=== PATIENT | female | born 1945 | race Caucasian/White ===

== ENCOUNTER 2016-03-30 11:24 | Observation (INO) | payer OTHER, MEDICARE ==
[2016-03-30] MEDS ORDERED: BUPIVACAINE 0.25% 30 ML SDV ONE (11:48)
[2016-03-30] MEDS ORDERED: LR 1,000 ML IV ONE (11:51)
[2016-03-30] MEDS ORDERED: LIDOCAINE 1% 5 ML SDV ID PRN (11:51)
[2016-03-30] MEDS ORDERED: LIDOCAINE 1% 5 ML SDV ONE (12:01)
[2016-03-30] MEDS ORDERED: ceFAZolin 2 GM/DEXTROSE 100 ML IV ONE (12:30)
--- NOTE | 2016-03-30 12:59 | CPEKG ---
Heart Rate: 61 RR Interval: 984 P-R Interval: 132 QRSD Interval: 76 QT Interval: 440 QTC Interval: 444 P Jolon: 37 QRS Jolon: 21 T Wave Jolon: 42 EKG Severity - NORMAL ECG - EKG Impression: SINUS RHYTHM Electronically Signed By: Gilson Reid 31-Mar-2016 13:04:44
[2016-03-30] MEDS ORDERED: MIDAZOLAM 2 MG/2 ML VIAL ONE (13:03)
[2016-03-30] MEDS ORDERED: DEXAMETHASONE 4 MG/ML VIAL ONE (13:15)
[2016-03-30] MEDS ORDERED: ONDANSETRON 4 MG/2 ML VIAL ONE (13:15)
[2016-03-30] MEDS ORDERED: LIDOCAINE 2% 100 MG/5 ML SYR IVP ONE (13:15)
[2016-03-30] MEDS ORDERED: fentaNYL 100 MCG/2 ML INJ ONE ×2 (13:15→15:20)
[2016-03-30] MEDS ORDERED: PROPOFOL 200 MG/20 ML VIAL ONE (13:15)
--- NOTE | 2016-03-30 13:19 | NM ---
Nuclear Medicine Lymphoscintigraphy History: Left breast cancer staging. Comparison: Diagnostic mammogram and stereotactic biopsy February 06, 2016. Technique: Informed consent was obtained. The breast was sterilely prepped and draped. An intraderm al aliquot of 308 uCi Lymphoseek and a parenchymal aliquot of 226 uCi Lymphoseek were injected. The injections were placed at the 12:00 position after topical numbing spray was utilized. The patient wa s imaged serially. Findings: No angel uptake is identified. Impression: Seminal lymph node injection as above with no visible sentinel node.
[2016-03-30] MEDS ORDERED: SKIN ADHESIVE (DERMABOND) 1 EACH TP ONE (14:44)
[2016-03-30] MEDS ORDERED: HYDROmorphONE/DILAUDID 1 MG/ML SYR ONE (15:24)
--- NOTE | 2016-03-30 15:39 | POSTOPPROG ---
Post Op Note Date of Operation: 03/30/16 Surgeon: Varun Phelps (, FACS) Merchandise Deliverer: Tk Sharif CST/SA Anesthesiologist: Terry Tellez MD Anesthesia: LMA Pre-op Diagnosis: recurrent left breast cancer Post-op Diagnosis: same Procedure: left total mastectomy/superficial axillary node dissection/sentinel mapping Findings: 2/2 nodes negative by FS Inf/Abcess present in the surg proc area at time of surgery?: No EBL: Minimal Drains: Bo Grier
[2016-03-30] MEDS ORDERED: ONDANSETRON 4 MG/2 ML VIAL IVP PRN (15:41)
[2016-03-30] MEDS ORDERED: LR 1,000 ML IV SCH (16:00)
[2016-03-30] MEDS ORDERED: PROMETHAZINE HCL 25 MG/ML INJ ONE (16:03)
[2016-03-30 17:32] VITALS: RESP 16
[2016-03-30] MEDS ORDERED: HYDROmorphONE/DILAUDID 1 MG/ML SYR IVP PRN (22:00)
[2016-03-31] MEDS: HYDROCODONE/APAP 5/325 TAB PO PRN ×3 (00:59→09:22)
--- NOTE | 2016-03-31 03:33 | GOP ---
[f rep st] OPERATIVE REPORT DATE OF OPERATION: 03/30/2016 SURGEON: Varun Phelps MD, FACS WELLNESS EDUCATOR: Braden Sharif J2EE ANDROID DEVELOPER, [facility] ANESTHESIA: General by laryngeal mask. ANESTHESIOLOGIST: Terry Tellez MD PREOPERATIVE DIAGNOSIS: Recurrent left breast carcinoma status post partial mastectomy and whole breast radiation. POSTOPERATIVE DIAGNOSIS: Recurrent left breast carcinoma status post partial mastectomy and whole breast radiation. PROCEDURE PERFORMED: Left total mastectomy with sentinel lymph node mapping and superficial axillary lymph node dissection. FINDINGS: Two sentinel lymph nodes submitted for frozen section as well as permanent section showing no evidence of metastatic malignancy. Left mastectomy specimens submitted for permanent section, marking the specimen with sutures to designate the superior margin (short) and the lateral margin (long). ESTIMATED BLOOD LOSS: 25 mL. DESCRIPTION OF PROCEDURE: After informed consent was obtained, the patient was brought to the operating room and placed under general anesthesia. The left breast was prepped and draped in usual fashion. She had undergone preoperative sentinel lymph node injection and images were reviewed preoperatively. The sentinel nodes were not visualized by lymphoscintigraphy either in the mediastinum or in the axilla. Before proceeding, a time-out identification of the patient was performed. The safe and timely completion of the operation required the help of a qualified 1st assistant engineer and Mr. Tk Sharif was requested to attend. Mastectomy was performed through an elliptical incision encompassing the nipple- areolar complex. Flaps were elevated cephalad to the infraclavicular fossa, medially to the sternal border, and inferiorly to the inframammary fold. Lateral the dissection was carried to the border of the latisimus. The breast tissue was then from the pectoralis medially and extending laterally to the pectoralis border. Hemostasis was secured with cautery and hemoclips. Laterally, the dissection was carried out down to the latissimus and then cephalad to the axilla. Patient was noted to have significant scar tissue throughout the procedure from her prior whole breast radiation and this extended to the tail of the breast. Once the axillary fascia had been incised, we were able to use the gamma detector to identify the sentinel nodes which were in the mid level 1 chain. The breast was amputated at the axillary tail. Hemostasis was secured with hemoclips and cautery. Dissection further into the axilla revealed the location of the 2 nodes. These were quite deep in the axilla, but superficial to the long thoracic nerve of Vega and immediately overlying the serrated muscle. Two nodes were retrieved. These were submitted for frozen section and were submitted for permanent section subsequently after the frozen section showed no evidence of malignancy. Hemostasis appeared secure. A single 10 mm flat Bo-Grier drain was brought through a separate stab wound, secured to the skin with 3-0 nylon suture. Subcutaneous tissues were closed with 3-0 Monocryl suture. A redundant portion of skin was resected laterally because of a significant dog ear. The remainder of the incision was closed with akash. The core needle biopsy site which was high in the left chest in the infraclavicular fossa was excised and submitted for permanent section. This was closed with a single interrupted 4-0 Monocryl suture in subcuticular fashion with Dermabond applied to it. Patient was extubated and brought to the recovery room in satisfactory condition. Needle, sponge, instrument count were correct. COMPLICATIONS: None. /[id number]/MODL MTDD
[2016-03-31] MEDS ORDERED: ONDANSETRON DISINTEGRATING 4 MG TAB PO PRN (07:46)
--- NOTE | 2016-03-31 08:17 | PDDCSUM ---
Discharge Summary Discharge Summary: #[id number] Discharge Summary dictated S MD Lenin, FACS
--- NOTE | 2016-03-31 08:38 | GDS ---
[f rep st] DISCHARGE SUMMARY DISCHARGE DIAGNOSES: 1. Recurrent left breast carcinoma. 2. Postoperative nausea and vomiting. PROCEDURE PERFORMED: On 03/30/2016, left total mastectomy with sentinel lymph node mapping and super ficial axillary lymph node dissection. HOSPITAL COURSE: For details of admission history and physical, please see dictated summary. Briefl y, the patient is a 70-year-old female, who is approximately 5 years status post left partial mastect marii for ductal carcinoma in situ with microinvasion. The patient had a sentinel lymph node mapping a nd subsequent postoperative radiation therapy to the left breast. She was found to have new microcal cifications in the left breast on mammography. Needle biopsy showed invasive ductal carcinoma. She was admitted for mastectomy on the . At the time of surgery she had 2 sentinel nodes identified and recovered that showed no evidence of malignancy. The mastectomy specimen was submitted for perma nent section. Following surgery, the patient had moderate nausea and vomited several times, possibly related to intravenous Dilaudid. She received Concord for pain subsequently and had no further nausea or emesis. She was discharged home after tolerating breakfast the day after surgery. Her surgical sites were uncomplicated. She was instructed on Bo-Grier drain care and will follow up in my of [place] in the next 2-3 days for dressing change and drain check. DISCHARGE MEDICATIONS: Concord 5/325 one to two q.4 hours p.r.n. pain, Zofran 10 mg p.o. q.4 hours p.r .n. nausea. The patient will resume aspirin, which she takes on a daily basis, 81 mg p.o. daily. CONDITION AT TIME OF DISCHARGE: Satisfactory. /[id number]/MODL
[2016-03-31] MEDS ORDERED: ASPIRIN 81 MG CHEWABLE TAB PO SCH (09:00)
[2016-03-31] MEDS ORDERED: ASPIRIN 81 MG PO SCH (09:00)
[2016-03-31] MEDS ORDERED: ENOXAPARIN 40 MG/0.4 ML SYR SC SCH (09:00)
[2016-03-31 10:11] VITALS: BP 129/66; PULSE 75; TEMP 98.8; O2SAT 96
== END 2016-03-31 09:45 | disposition home or self-care (01) ==
LOC: FPAT 11:24 → F3E 15:30 → FOB 17:49
PROVIDERS: ADMIT Surgery; ATTEND Surgery
PROC: 07B60ZX Excision of Left Axillary Lymphatic, Open Approach, Diagnostic (ICD-10-PCS; principal; 2016-03-30 13:00)
PROC: 0HTU0ZZ Resection of Left Breast, Open Approach (ICD-10-PCS; principal; 2016-03-30 13:00)
DX: C50.412 Malignant neoplasm of upper-outer quadrant of left female breast (principal); M81.0 Age-related osteoporosis without current pathological fracture
CPT/HCPCS: 19307; 78195; 93005; A9520; J0690; J1100; J1170; J1650; J2001; J2250; J2405; J2550; J2704; J3010

== ENCOUNTER 2016-04-18 18:27 | Inpatient (IN) | payer OTHER, MEDICARE ==
--- NOTE | 2016-04-18 18:57 | EDPHY ---
H & P Stated Complaint: recent masectomy w/ infection 04/10 Time Seen by Provider: 04/18/16 18:42 HPI/ROS: CHIEF COMPLAINT: Redness and possible infection of mastectomy site HISTORY OF PRESENT ILLNESS: 70-year-old female underwent a mastectomy for recurrent left breast carcinoma on March 31. Patient reports she developed a significant hematoma which became infected following her surgery and had a drain placed on April 09. Drain was removed yesterday. At that time the patient had some erythema around the incision site however, she presents today reporting that the redness has significantly increased. She walked for approximately 10 minutes on the treadmill this morning and then afterwards felt very fatigued. Temperature at that time was 100.6. She lay down and had a repeat temperature obtained later in the afternoon which was 100.9. Reports just feeling poorly. No chest pain or shortness of breath. No palpitations, no vomiting or diarrhea. No urinary complaints. No headache or lightheadedness. REVIEW OF SYSTEMS: Aside from elements discussed in the HPI, a comprehensive 10-point review of systems was reviewed and is negative. PAST MEDICAL HISTORY: Recurrent carcinoma the left breast. SOCIAL HISTORY: Patient is here with her . VITAL SIGNS Reviewed by me. GENERAL: Well-developed, well-nourished, feels poorly. HEENT: Atraumatic. Eyes: No icterus, no injection. Mouth: moist mucous membranes. No erythema or lesions. Neck: supple with no adenopathy. LUNGS: Clear to auscultation bilaterally, no wheezes, rhonchi or rales. CARDIAC: Regular rate and rhythm, no rubs, murmurs or gallops. CHEST: Healing incision across the left anterior chest wall. Erythema extending 10 cm cephalad and 10 cm below the incision. No fluctuance. Minimal drainage on the bandage at the site of the drain removal. ABDOMEN: Soft, nontender, nondistended, bowel sounds normal. BACK: No CVA tenderness. EXTREMITIES: No trauma. No edema. Range of motion is normal throughout. NEURO: Alert and oriented, grossly nonfocal. SKIN: Warm and dry, no rash. PSYCHIATRIC: Normal mentation, no agitation. - Personal History Current Tetanus/Diphtheria Vaccine: Unsure Current Tetanus Diphtheria and Acellular Pertussis (TDAP): Unsure - Medical/Surgical History Hx Asthma: No Hx Chronic Respiratory Disease: No Hx Diabetes: No Hx Cardiac Disease: No Hx Renal Disease: No Hx Cirrhosis: No Hx Alcoholism: No Hx HIV/AIDS: No Hx Splenectomy or Spleen Trauma: No Other PMH: Breast CA osteoporosis - Social History Smoking Status: Never smoked Constitutional: Initial Vital Signs Temperature (C) 37.3 C 04/18/16 18:29 Heart Rate 93 04/18/16 18:29 Respiratory Rate 16 04/18/16 18:29 Blood Pressure 102/63 04/18/16 18:29 O2 Sat (%) 96 04/18/16 18:29 O2 Delivery Mode Room Air Allergies/Adverse Reactions: chlorpheniramine [Chlorpheniramine] Allergy (Intermediate, Verified 03/30/10 12: 29) Rash erythromycin base [Erythromycin Base] Allergy (Intermediate, Verified 03/30/10 12:31) irregular heartbeat meperidine [Meperidine] Allergy (Intermediate, Verified 03/30/10 12:31) Rash morphine [Morphine] Allergy (Intermediate, Verified 03/30/10 12:37) extreme nausea adhesive tape Allergy (Verified 03/14/16 11:47) meperidine HCl [From Demerol] Allergy (Verified 03/14/16 11:47) ether Allergy (Intermediate, Uncoded 03/30/10 12:36) unknown heart reaction as a child Home Medications: Medication Instructions Recorded Acetaminophen [Tylenol ES 500 mg 500 mg PO Q6 PRN 04/18/16 (*)] Ibuprofen [Motrin (*)] 200 mg PO Q4H PRN 04/18/16 Medical Decision Making ED Course/Re-evaluation: IV was established. Patient received 1 g of vancomycin. Blood cultures were sent. Screening for sepsis was undertaken. Severe Sepsis/Septic Shock Care Note The patient presents to the ED with cellulitis identified as an acute infection. The patient did not have evidence of end-organ dysfunction and met not criteria for severe sepsis. Patient received 1 g of vancomycin while in the emergency department. She was evaluated by Dr. Jesus. Please see Dr. Jesus note. Patient will be admitted to the hospital for ongoing care of her cellulitis and consideration of possible surgical intervention. Differential Diagnosis: Differential diagnoses for the patient's symptom complex was considered including but not limited to cellulitis, allergic reaction, deep space infection , infected hematoma, septicemia. Consult/Admit Bed Type: Dr. Jesus, med surg - Data Points Laboratory Results: Laboratory Results 04/18/16 19:00 04/18/16 19:00 04/18/16 19:00 WBC 12.47 H 10^3/uL (3.80-9.50) RBC 4.39 10^6/uL (4.18-5.33) Hgb 13.3 g/dL (12.6-16.3) Hct 41.1 % (38.0-47.0) MCV 93.6 fL (81.5-99.8) MCH 30.3 pg (27.9-34.1) MCHC 32.4 g/dL (32.4-36.7) RDW 13.8 % (11.5-15.2) Plt Count 337 10^3/uL (150-400) MPV 9.8 fL (8.7-11.7) Neut % (Auto) 83.4 H % (39.3-74.2) Lymph % (Auto) 7.9 L % (15.0-45.0) Alcorn % (Auto) 7.3 % (4.5-13.0) Eos % (Auto) 0.3 L % (0.6-7.6) Baso % (Auto) 0.5 % (0.3-1.7) Nucleat RBC Rel Count 0.0 % (0.0-0.2) Absolute Neuts (auto) 10.40 H 10^3/uL (1.70-6.50) Absolute Lymphs (auto) 0.99 L 10^3/uL (1.00-3.00) Absolute Monos (auto) 0.91 H 10^3/uL (0.30-0.80) Absolute Eos (auto) 0.04 10^3/uL (0.03-0.40) Absolute Basos (auto) 0.06 10^3/uL (0.02-0.10) Absolute Nucleated RBC 0.00 10^3/uL (0-0.01) Immature Gran % 0.6 % (0.0-1.1) Immature Gran # 0.07 10^3/uL (0.00-0.10) PT 13.0 SEC (12.0-15.0) INR 0.99 (0.83-1.16) APTT 22.1 L SEC (23.0-38.0) VBG Lactic Acid 1.4 mmol/L (0.7-2.1) Sodium 138 mEq/L (134-144) Potassium 4.2 mEq/L (3.5-5.2) Chloride 102 mEq/L (97-110) Carbon Dioxide 23 mEq/l (22-31) Anion Gap 13 mEq/L (8-16) BUN 16 mg/dL (7-23) Creatinine 0.7 mg/dL (0.6-1.0) Estimated GFR > 60 Glucose 94 mg/dL (70-100) Calcium 9.7 mg/dL (8.5-10.4) Total Bilirubin 0.9 mg/dL (0.1-1.4) Medications Given: Discontinued Medications Vancomycin/Sodium Chloride (Vancomycin 1 Gm (Premix)) 250 mls @ 250 mls/hr IV EDNOW ONE PRN Reason: Protocol Stop: 04/18/16 20:26 Last Admin: 04/18/16 19:45 Dose: 250 mls Departure - Departure Disposition: [facility] Inpatient Acute Clinical Impression: Cellulitis of chest wall Condition: Fair
[2016-04-18 19:15] LABS: % IMMATURE GRANULYOCYTES 0.6 % (0.0-1.1); ABSOLUTE IMMATURE GRANULOCYTES 0.07 10^3/uL (0.00-0.10); ADD DIFF? NO; ADD MORPH? NO; ADD SCAN? NO; ATYPICAL LYMPHOCYTE FLAG 0 (0-99); FRAGMENT RBC FLAG 0 (0-99); HEMATOCRIT 41.1 % (38.0-47.0); HEMOGLOBIN 13.3 g/dL (12.6-16.3); LEFT SHIFT FLG 0 (0-99); LIPEMIA HEMOLYSIS FLAG 80 (0-99); MEAN CELL HEMOGLOBIN 30.3 pg (27.9-34.1); MEAN CELL HEMOGLOBIN CONCENTR. 32.4 g/dL (32.4-36.7); MEAN CELL VOLUME 93.6 fL (81.5-99.8); MEAN PLATELET VOLUME 9.8 fL (8.7-11.7); PLATELET CLUMPS FLAG 20 (0-99); PLATELET COUNT 337 10^3/uL (150-400); RED BLOOD CELL COUNT 4.39 10^6/uL (4.18-5.33); RED CELL DISTRIBUTION WIDTH 13.8 % (11.5-15.2)
[2016-04-18 19:26] LABS: INR 0.99 (0.83-1.16)
[2016-04-18 19:27] LABS: APTT 22.1 SEC (23.0-38.0)
[2016-04-18] MEDS ORDERED: VANCOMYCIN HCL/NORMAL SALINE 250 ML IV ONE (19:27)
[2016-04-18 19:42] LABS: ANION GAP 13 mEq/L (8-16); BILIRUBIN,TOTAL 0.9 mg/dL (0.1-1.4); CALCIUM 9.7 mg/dL (8.5-10.4); CARBON DIOXIDE 23 mEq/l (22-31); CHLORIDE 102 mEq/L (97-110); CREATININE 0.7 mg/dL (0.6-1.0); GLOMERULAR FILTRATION RATE > 60; GLUCOSE 94 mg/dL (70-100); POTASSIUM 4.2 mEq/L (3.5-5.2); SODIUM 138 mEq/L (134-144)
[2016-04-18] MEDS ORDERED: OXYCODONE/APAP 5/325 TAB PO PRN (20:10)
[2016-04-18] MEDS ORDERED: DOCUSATE SODIUM 100 MG CAP PO ONE (20:10)
[2016-04-18] MEDS ORDERED: ONDANSETRON 4 MG/2 ML VIAL IVP PRN (20:16)
[2016-04-18] MEDS ORDERED: VANCOMYCIN 1.5 GM in D5W 250 ML IV SCH (20:30)
--- NOTE | 2016-04-18 20:32 | GHP ---
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 She had mastecto my with Dr. Phelps on March 31 which was complicated by hematoma, requiring evacuation 9 days later . Her drain was removed yesterday. Today she noted erythema around the incision which has gotten sign ificantly more severe and grown in area. She subsequently noted low-grade fevers to a maximum of 100. 9 and was advised to come into the emergency department where she was noted to have a white blood lamberto l count of 12 with a left shift to 83% neutrophils. PAST MEDICAL HISTORY: Two primary breast cancers of the left breast as per history of present illnes s. Osteoporosis. PAST SURGICAL HISTORY: She has had a section. She has had 2 laparoscopies for ablation of endometriosis. She has had the lumpectomy, mastectomy and hematoma evacuations as per history of pres ent illness. MEDICATIONS: None. ALLERGIES: Erythromycin, Demerol, morphine, chlorpheniramine. SOCIAL HISTORY: She is a nonsmoker. FAMILY HISTORY: There is no history of breast cancer. REVIEW OF SYSTEMS: She denied chest pain, shortness of breath, nausea or vomiting. She complained o f low-grade fevers, pain and redness of her left chest wall. PHYSICAL EXAMINATION: VITAL SIGNS: Her temperature is 37.3, heart rate 93, blood pressure 102/63, r espiratory rate 16. She is saturating 96% on room air. GENERAL: She is alert in acute distress, no ntoxic appearing, nonjaundiced. LUNGS: Clear to auscultation bilaterally. HEART: Regular rate and rhythm. ABDOMEN: Soft, and flat. SKIN: She has extensive erythema edema of the left chest wall salazar rrounding the mastectomy incision and extending to the left posterior axillary line. LABORATORY DATA: White count is 12 with a left shift to 83% neutrophils, hematocrit 41, platelets 33 7. INR is 1. Lactate is 1.4, creatinine 0.7. ASSESSMENT: Cellulitis of the left chest wall. PLAN: She will be admitted for IV antibiotics, IV fluids and observation with serial exams and lab w ork. /[id number]/MODL
[2016-04-18] MEDS: LR 1,000 ML IV SCH (21:30)
[2016-04-18] MEDS: ACETAMINOPHEN 325 MG TAB PO PRN (22:15)
[2016-04-18 23:58] LABS: COLOR YELLOW; LEUKOCYTE ESTERASE,URINE TRACE (NEGATIVE); NITRITE,URINE NEGATIVE (NEGATIVE)
[2016-04-19] LABS: MUCUS TRACE /lpf (NONE-1+)
[2016-04-19] MEDS: ACETAMINOPHEN 325 MG TAB PO PRN ×3 (04:55→19:36)
[2016-04-19 05:32] LABS: % IMMATURE GRANULYOCYTES 0.8 % (0.0-1.1); ADD DIFF? NO; ADD MORPH? NO; ADD SCAN? NO; ATYPICAL LYMPHOCYTE FLAG 10 (0-99); FRAGMENT RBC FLAG 0 (0-99); HEMATOCRIT 32.6 % (38.0-47.0); HEMOGLOBIN 10.6 g/dL (12.6-16.3); LEFT SHIFT FLG 0 (0-99); LIPEMIA HEMOLYSIS FLAG 80 (0-99); MEAN CELL HEMOGLOBIN 30.3 pg (27.9-34.1); MEAN CELL HEMOGLOBIN CONCENTR. 32.5 g/dL (32.4-36.7); MEAN CELL VOLUME 93.1 fL (81.5-99.8); MEAN PLATELET VOLUME 9.7 fL (8.7-11.7); PLATELET CLUMPS FLAG 0 (0-99); PLATELET COUNT 272 10^3/uL (150-400)
[2016-04-19] MEDS ORDERED: VANCOMYCIN 750 MG in D5W 150 ML IV SCH (08:30)
--- NOTE | 2016-04-19 17:42 | SOAPPROG ---
SOAP Progress Note Assessment/Plan: Assessment: post mastectomy cellulitis/clinically suspicious for streptococcal cellulitis given the rapid onset Plan: continue Vanco/ID consult repeat UA +/- culture 04/19/16 17:36 Subjective: denies pain/no urinary symptoms Objective: Vital Signs Temp Pulse Resp BP Pulse Ox 37.3 C 75 18 136/69 H 95 04/19/16 16:00 04/19/16 16:00 04/19/16 16:00 04/19/16 16:00 04/19/16 16:00 Laboratory Results 04/19/16 04:55 04/18/16 04/19/16 04/20/16 05:59 05:59 05:59 Intake Total 1285 Balance 1285 PT 13.0 SEC (12.0-15.0) 04/18/16 19:00 INR 0.99 (0.83-1.16) 04/18/16 19:00 Physical Exam - Physical Exam General Appearance: no apparent distress Cardiac/Chest: other (erythema left anterior chest wall, no fluctuence/smaller than original presentation by 10-20% based on the outline drawn on her chest) ICD10 Worksheet Patient Problems: Problems Problem Status Diagnosed Cellulitis of chest wall Acute
[2016-04-19] MEDS: LR 1,000 ML IV SCH (19:38)
[2016-04-19 21:11] LABS: COLOR YELLOW; LEUKOCYTE ESTERASE,URINE NEGATIVE (NEGATIVE); NITRITE,URINE NEGATIVE (NEGATIVE)
[2016-04-19] MEDS: VANCOMYCIN 750 MG in D5W 150 ML IV SCH (21:42)
[2016-04-20] MEDS: ACETAMINOPHEN 325 MG TAB PO PRN ×4 (01:49→22:04)
[2016-04-20 05:06] LABS: % IMMATURE GRANULYOCYTES 0.4 % (0.0-1.1); ABSOLUTE IMMATURE GRANULOCYTES 0.04 10^3/uL (0.00-0.10); ADD DIFF? NO; ADD MORPH? NO; ADD SCAN? NO; ATYPICAL LYMPHOCYTE FLAG 10 (0-99); FRAGMENT RBC FLAG 0 (0-99); HEMATOCRIT 33.7 % (38.0-47.0); HEMOGLOBIN 11.2 g/dL (12.6-16.3); LEFT SHIFT FLG 0 (0-99); LIPEMIA HEMOLYSIS FLAG 80 (0-99); MEAN CELL HEMOGLOBIN 30.4 pg (27.9-34.1); MEAN CELL HEMOGLOBIN CONCENTR. 33.2 g/dL (32.4-36.7); MEAN CELL VOLUME 91.3 fL (81.5-99.8); MEAN PLATELET VOLUME 9.7 fL (8.7-11.7); PLATELET CLUMPS FLAG 0 (0-99); PLATELET COUNT 264 10^3/uL (150-400); RED BLOOD CELL COUNT 3.69 10^6/uL (4.18-5.33); RED CELL DISTRIBUTION WIDTH 13.6 % (11.5-15.2)
--- NOTE | 2016-04-20 07:37 | SOAPPROG ---
SOAP Progress Note Assessment/Plan: Assessment: post mastectomy cellulitis/clinically suspicious for streptococcal cellulitis given the rapid onset continues to improve Day #3 Vanco Plan: continue Vanco/ID consult 04/19/16 17:36 04/20/16 07:35 Subjective: still feels feverish when her Tylenol wears off Objective: Vital Signs Temp Pulse Resp BP Pulse Ox 37.4 C 77 15 151/72 H 91 L 04/20/16 00:00 04/20/16 00:00 04/20/16 00:00 04/20/16 00:00 04/20/16 00:00 Laboratory Results 04/20/16 04:36 04/19/16 04/20/16 04/21/16 05:59 05:59 05:59 Intake Total 2513 Output Total 2 Balance 2511 PT 13.0 SEC (12.0-15.0) 04/18/16 19:00 INR 0.99 (0.83-1.16) 04/18/16 19:00 Physical Exam - Physical Exam General Appearance: alert, no apparent distress Cardiac/Chest: other (chest wall cellulitis resolving/no fluctuance/moderate swelling) ICD10 Worksheet Patient Problems: Problems Problem Status Diagnosed Cellulitis of chest wall Acute
[2016-04-20] MEDS: LR 1,000 ML IV SCH ×2 (07:44→21:00)
[2016-04-20] MEDS: VANCOMYCIN 750 MG in D5W 150 ML IV SCH (10:19)
--- NOTE | 2016-04-20 11:33 | GCON ---
[f rep st] CONSULTATION INFECTIOUS DISEASES CONSULTATION DATE OF CONSULTATION: 04/20/2016 REASON FOR CONSULTATION: Left chest wall cellulitis following mastectomy. HISTORY OF PRESENT ILLNESS: A 70-year-old woman with a past medical history of remote lumpectomy who underwent complete left mastectomy on March 30, 2016. Her course was complicated by hematoma which was subsequently evacuated surgically April 10. She had her akash and drain removed on April 17 and subsequently developed marked increased redness of the left chest wall and a higher temperature to 101. She presented to the emergency room for evaluation and was found to have leukocytosis with a left shift. The patient was admitted for IV antibiotics and started on IV vancomycin 750 mg IV q.12. Since admission, patient has had recession of the redness. She reports minimal pain associated with the skin abnormalities. Her last elevated temperature was 04/19/2016 at 38.2. She has had mild improvement in leukocytosis, initially 12.4, today 10.6. Blood cultures from admission have remained negative. Patient denies night sweats, malaise. Her is present throughout the history and exam. PAST MEDICAL HISTORY: 1. breast cancer prior Radiation and lumpectomy, no chemo. 2. Endometriosis. 3. Osteoporosis. PAST SURGICAL HISTORY: 1. x1. 2. Exploratory laparotomy multiple times related to endometriosis and ovary on her cyst. 3. Mastectomy as per HPI and more remote lumpectomy SOCIAL HISTORY: She is a nonsmoker. She uses rare alcohol. She is . She has 1 child. 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 FAMILY HISTORY: Strongly positive for coronary artery disease. Her dad at 53, her brother at age 39, and her other brothers has had a CABG. She also has a more distant family history of diabetes. No family history of breast cancer. REVIEW OF SYSTEMS: A complete 10-point review of systems was performed and was negative, except as mentioned in the HPI. PHYSICAL EXAM: VITAL SIGNS: Blood pressure 137/67, heart rate 91, respiratory rate 18, temperature 37.2. GENERAL: This is a pleasant, nontoxic-appearing woman, sitting in bed in no acute distress. HEENT: Pupils are reactive bilaterally. No conjunctival hemorrhages. Oropharynx: Fair dentition, moist mucous membranes. NECK: Supple. No lymphadenopathy. CARDIOVASCULAR: Regular rate and rhythm. No murmurs. CHEST: Clear to auscultation bilaterally. ABDOMEN: Soft, nontender. Bowel sounds are present. EXTREMITIES : No clubbing, cyanosis, or edema. SKIN: Patient had obvious cellulitis of her left chest wall associated with her mastectomy incision. area of erythema was approximately 7 x 15 cm in diameter without fluctuance with obvious recession from purple lines drawn on admission. No associated lymphadenopathy. Mild tenderness laterally, but otherwise was fairly nontender. No purulence from incision site or drainage. NEUROLOGICAL: She was alert and oriented x4. Moving all 4 extremities equally. LABORATORY: White count 10.6, hematocrit 33, platelets of 267, 82% neutrophils. INR 0.9. Creatinine 0.7. Blood cultures from 04/18/2016 are no growth to date. Imaging: None. ASSESSMENT AND PLAN: A 70-year-old female who underwent a left mastectomy on , course complicated by hematoma requiring surgical evacuation, who developed sudden redness of her left chest wall following drain removal, consistent with cellulitis. Patient already has signs of improvement with recession of erythema from prior lines and decreasing WBC. Rapid onset, particularly bright erythema, and lack of purulence, is suggestive of streptococcal mediated disease as suggested by the Surgical Services, but cannot completely exclude Staphylococcus. The patient has some mild risk for methicillin-resistant Staphylococcus aureus, but overall risk is low. Would recommend narrowing coverage to Streptococcus and methicillin-susceptible Staphylococcus aureus and discontinuing coverage for methicillin-resistant Staphylococcus aureus. 1. Discontinue vancomycin and monitoring parameters. 2. Start cefazolin 1 g IV q.8h. with hopes to step-down to oral therapy in the next day or 2. 3. Education was provided regarding antibiotic changes, changes in coverage, tissue penetration, and parameters of monitoring. 4. re-marked erythema with a dotted line to help for continued monitoring over the weekend. Thank you for this consultation. /[id number]/MODL MTDD
[2016-04-21 05:26] LABS: % IMMATURE GRANULYOCYTES 0.2 % (0.0-1.1); ABSOLUTE IMMATURE GRANULOCYTES 0.02 10^3/uL (0.00-0.10); ADD DIFF? NO; ADD MORPH? NO; ADD SCAN? NO; ATYPICAL LYMPHOCYTE FLAG 10 (0-99); FRAGMENT RBC FLAG 0 (0-99); HEMATOCRIT 34.7 % (38.0-47.0); HEMOGLOBIN 11.5 g/dL (12.6-16.3); LEFT SHIFT FLG 0 (0-99); LIPEMIA HEMOLYSIS FLAG 80 (0-99); MEAN CELL HEMOGLOBIN 30.1 pg (27.9-34.1); MEAN CELL HEMOGLOBIN CONCENTR. 33.1 g/dL (32.4-36.7); MEAN CELL VOLUME 90.8 fL (81.5-99.8); MEAN PLATELET VOLUME 9.9 fL (8.7-11.7); PLATELET CLUMPS FLAG 0 (0-99); PLATELET COUNT 283 10^3/uL (150-400); RED BLOOD CELL COUNT 3.82 10^6/uL (4.18-5.33); RED CELL DISTRIBUTION WIDTH 13.5 % (11.5-15.2)
[2016-04-21] MEDS: LR 1,000 ML IV SCH ×2 (06:24→17:55)
[2016-04-21] MEDS: ACETAMINOPHEN 325 MG TAB PO PRN ×3 (07:24→22:44)
--- NOTE | 2016-04-21 16:48 | PCMIDPN ---
Assessment/Plan: Assessment/Plan: 1. Left chest wall cellulitis with abscess: s/p I & D (bedside) - Recent mastectomy (03/30/16) with subsequent hematoma (drained). - events of today noted. Cultures sent off. Appreciate Dr. Phelps -AWait cultures to better direct therapy. - Given new abscess findings and no improvement in degree of erythema will change back to Vanco until cx results back. I reviewed this plan with patient and -Reviewed several possible explanations for above with patient and including common pathogens related to such presentation, possible reasons for plateaued affect, that this could still be Strep presentation despite not much improvement today. -wbc overall improved. -Long discussion with patient and . -blood cx ngtd - Meds Ancef 1g q8- Subjective: TEmps better. Today's events noted with small incision made and pus expressed out by Dr. Phelps. Some decrease in pain after that procedure. Redness is the same as yesterday. Denies sob, abd pain or diarrhea. Objective: Vital Signs Temp Pulse Resp BP Pulse Ox 36.9 C 78 17 163/89 H 94 04/21/16 15:54 04/21/16 15:54 04/21/16 15:54 04/21/16 15:54 04/21/16 15:54 Laboratory Results 04/21/16 04:43 04/20/16 04/21/16 04/22/16 05:59 05:59 05:59 Intake Total 2513 3320 Output Total 2 Balance 2511 3320 - Physical Exam General Appearance: alert, no apparent distress Respiratory: lungs clear Cardiac/Chest: regular rate, rhythm Extremities: No swelling Abdomen: normal bowel sounds, non-tender, soft, No distended Skin: erythema, induration, other (left breast: erythema same as yesterday's demarcation. small incision site noted with wick in place. induratoin appreciated. ) ICD10 Worksheet Patient Problems: Problems Problem Status Diagnosed Cellulitis of chest wall Acute
[2016-04-21] MEDS: VANCOMYCIN 750 MG in D5W 150 ML IV SCH (17:55)
[2016-04-22] MEDS: LR 1,000 ML IV SCH (02:20)
[2016-04-22] MEDS: VANCOMYCIN 750 MG in D5W 150 ML IV SCH (04:38)
[2016-04-22 04:58] LABS: % IMMATURE GRANULYOCYTES 0.4 % (0.0-1.1); ABSOLUTE IMMATURE GRANULOCYTES 0.02 10^3/uL (0.00-0.10); ADD DIFF? NO; ADD MORPH? NO; ADD SCAN? NO; ATYPICAL LYMPHOCYTE FLAG 30 (0-99); FRAGMENT RBC FLAG 0 (0-99); HEMATOCRIT 34.6 % (38.0-47.0); HEMOGLOBIN 11.5 g/dL (12.6-16.3); LEFT SHIFT FLG 0 (0-99); LIPEMIA HEMOLYSIS FLAG 80 (0-99); MEAN CELL HEMOGLOBIN CONCENTR. 33.2 g/dL (32.4-36.7); MEAN CELL VOLUME 90.3 fL (81.5-99.8); MEAN PLATELET VOLUME 9.6 fL (8.7-11.7); PLATELET CLUMPS FLAG 10 (0-99); PLATELET COUNT 290 10^3/uL (150-400); RED BLOOD CELL COUNT 3.83 10^6/uL (4.18-5.33); RED CELL DISTRIBUTION WIDTH 13.3 % (11.5-15.2)
[2016-04-22 05:24] LABS: ALANINE AMINOTRANSFERASE 24 IU/L (9-52); ALBUMIN 3.4 g/dL (3.5-5.0); ALKALINE PHOSPHATASE 71 IU/L (38-126); ANION GAP 11 mEq/L (8-16); ASPARTATE AMINOTRANSFERASE 21 IU/L (14-46); BILIRUBIN,TOTAL 0.4 mg/dL (0.1-1.4); CALCIUM 9.2 mg/dL (8.5-10.4); CARBON DIOXIDE 26 mEq/l (22-31); CHLORIDE 108 mEq/L (97-110); CREATININE 0.5 mg/dL (0.6-1.0); GLOMERULAR FILTRATION RATE > 60; GLUCOSE 92 mg/dL (70-100); POTASSIUM 3.6 mEq/L (3.5-5.2); SODIUM 145 mEq/L (134-144); TOTAL PROTEIN 6.1 g/dL (6.3-8.2)
--- NOTE | 2016-04-22 07:02 | SOAPPROG ---
SOAP Progress Note Assessment/Plan: Assessment: post mastectomy cellulitis/clinically suspicious for streptococcal cellulitis given the rapid onset continues to improve Day #3 + 1 Vanco Plan: continue Vanco/ID consult appreciated check cultures 04/19/16 17:36 04/20/16 07:35 04/22/16 07:01 Subjective: resting comfortably Objective: Vital Signs Temp Pulse Resp BP Pulse Ox 36.6 C 79 20 171/91 H 96 04/22/16 00:00 04/22/16 00:00 04/22/16 00:00 04/22/16 00:00 04/22/16 00:00 Laboratory Results 04/22/16 04:28 04/22/16 04:28 04/21/16 04/22/16 04/23/16 05:59 05:59 05:59 Intake Total 3320 2580 Balance 3320 2580 PT 13.0 SEC (12.0-15.0) 04/18/16 19:00 INR 0.99 (0.83-1.16) 04/18/16 19:00 - Pending Discharge Pending Discharge Within 24 Hours: No Pending Discharge Within 48 Hours: No Physical Exam - Physical Exam General Appearance: mild distress Cardiac/Chest: other (left mastectomy site remains erythematous/more seropurulent drainage while change wound dressing) ICD10 Worksheet Patient Problems: Problems Problem Status Diagnosed Cellulitis of chest wall Acute
[2016-04-22] MEDS: LISINOPRIL 5 MG TAB PO SCH (08:59)
[2016-04-22] MEDS: ACETAMINOPHEN 325 MG TAB PO PRN ×2 (14:58→21:45)
--- NOTE | 2016-04-22 16:15 | PCMIDPN ---
Assessment/Plan: Assessment/Plan: 1. Left chest wall cellulitis with abscess: s/p I & D (bedside) - Recent mastectomy (03/30/16) with subsequent hematoma (drained). - events of today noted. Cultures sent off. Appreciate Dr. Phelps -Cultures preliminary show MSSA -blood cx ngtd -Continue with Ancef therapy for above. -Still needs iv atbx for now. Hopefully in next 1-2 days she may be able to switch over. - patient and updated on results and plan of care. Meds Ancef 2g q8- 04/22/16 16:14 Subjective: Afebrile. BP improved. still with pain but slighlty less. more pus expressed out today. erythema is less than yesterday but still moderate in presentation. denies abd pain or diarrhea. at bedside Objective: Vital Signs Temp Pulse Resp BP Pulse Ox 37.2 C 73 14 147/73 H 93 04/22/16 15:47 04/22/16 15:47 04/22/16 15:47 04/22/16 15:47 04/22/16 15:47 Microbiology 04/21/16 10:00 Gram Stain - Final Chest - Aspirate Laboratory Results 04/22/16 04:28 04/22/16 04:28 04/21/16 04/22/16 04/23/16 05:59 05:59 05:59 Intake Total 3320 2580 Balance 3320 2580 - Physical Exam General Appearance: alert, no apparent distress Respiratory: lungs clear Cardiac/Chest: regular rate, rhythm Extremities: No swelling Abdomen: normal bowel sounds, non-tender, soft, No distended Skin: erythema (left breast/chest wall: erythema conitnues to improve within areas of demarcation. wick noted within incision site. boggy area surrounding it. still indurated. erytehma/induration extends to lateral chest wall.) ICD10 Worksheet Patient Problems: Problems Problem Status Diagnosed Cellulitis of chest wall Acute
[2016-04-22] MEDS: ceFAZolin 2 GM in D5W 100 ML IV SCH (21:42)
[2016-04-22] MEDS ORDERED: ceFAZolin 2 GM/DEXTROSE 100 ML IV SCH (22:00)
[2016-04-23] MEDS: ceFAZolin 2 GM in D5W 100 ML IV SCH ×3 (05:53→21:24)
--- NOTE | 2016-04-23 08:07 | SOAPPROG ---
SOAP Progress Note Assessment/Plan: Assessment: post mastectomy cellulitis/subcutaneous abscess MSSA now back on Ancef clinically improved Plan: continue IV Ancef/ID consult appreciated discussed wound care with anticipating discharge in the next day or two 04/19/16 17:36 04/20/16 07:35 04/22/16 07:01 04/23/16 08:05 Subjective: resting comfortably Objective: Vital Signs Temp Pulse Resp BP Pulse Ox 37.1 C 73 18 170/85 H 93 04/23/16 07:45 04/23/16 07:45 04/23/16 07:45 04/23/16 07:45 04/23/16 07:45 Microbiology 04/21/16 10:00 Gram Stain - Final Chest - Aspirate Laboratory Results 04/22/16 04:28 04/22/16 04:28 04/22/16 04/23/16 04/24/16 05:59 05:59 05:59 Intake Total 2580 490 Balance 2580 490 PT 13.0 SEC (12.0-15.0) 04/18/16 19:00 INR 0.99 (0.83-1.16) 04/18/16 19:00 - Pending Discharge Pending Discharge Within 48 Hours: Yes Pending Discharge Date: 04/25/16 Pending Discharge Time: 11:00 Physical Exam - Physical Exam General Appearance: no apparent distress Cardiac/Chest: other (left mastectomy dressing changed/more serous/less skin erythema) ICD10 Worksheet Patient Problems: Problems Problem Status Diagnosed Cellulitis of chest wall Acute
[2016-04-23] MEDS: LISINOPRIL 5 MG TAB PO SCH (08:24)
--- NOTE | 2016-04-23 11:03 | PCMIDPN ---
Assessment/Plan: Assessment/Plan: 1. Left chest wall cellulitis with abscess: s/p I & D (bedside) - Recent mastectomy (03/30/16) with subsequent hematoma (drained). - events of today noted. Cultures sent off. Appreciate Dr. Phelps -Cultures preliminary show MSSA -blood cx ngtd -Continue with Ancef therapy for above. -Clinically improving since pus draining out. Hopefully in next 1-2 days she may be able to switch over. - patient updated on plan of care. -will start setting up OP f/u. will reassess in AM. Meds Ancef 2g q8- Subjective: Afebrile. Feeling better overall. More pus expressed out by myself last evening and by Dr. Phelps this Am. Copious in amount. wick in place. erythema and induration continue to improve. Denies sob, abd pain or diarrhea. Objective: Vital Signs Temp Pulse Resp BP Pulse Ox 37.1 C 73 18 170/85 H 93 04/23/16 07:45 04/23/16 07:45 04/23/16 07:45 04/23/16 08:24 04/23/16 07:45 Microbiology 04/21/16 10:00 Gram Stain - Final Chest - Aspirate Laboratory Results 04/22/16 04:28 04/22/16 04:28 04/22/16 04/23/16 04/24/16 05:59 05:59 05:59 Intake Total 2580 490 Balance 2580 490 - Physical Exam General Appearance: alert, no apparent distress Respiratory: lungs clear Cardiac/Chest: regular rate, rhythm Extremities: No swelling Abdomen: normal bowel sounds, non-tender, soft, No distended Skin: erythema (left breast/chest wall: continued improvment in degree of erythema. ARea has continued to shrink down within lines of demarcation. New lines placed today. Less bright red in general as well. Wick noted. ongonig purulence from that site today. warmth appreciated. tender spot more laterally on chest.) ICD10 Worksheet Patient Problems: Problems Problem Status Diagnosed Cellulitis of chest wall Acute
[2016-04-24] MEDS: ceFAZolin 2 GM in D5W 100 ML IV SCH ×3 (07:25→22:13)
[2016-04-24] MEDS: LISINOPRIL 10 MG TAB PO SCH (08:42)
[2016-04-24 23:16] VITALS: RESP 16
[2016-04-25] MEDS: ceFAZolin 2 GM in D5W 100 ML IV SCH (05:54)
[2016-04-25 07:45] VITALS: BP 173/95; PULSE 65; TEMP 98.3; O2SAT 93
--- NOTE | 2016-04-25 08:08 | PCMIDPN ---
Assessment/Plan: Assessment/Plan: 1. Left chest wall cellulitis with abscess: s/p I & D (bedside) - Recent mastectomy (03/30/16) with subsequent hematoma (drained). - events of today noted. Cultures sent off. Appreciate Dr. Phelps -Cultures preliminary show MSSA -blood cx ngtd -Continue with Ancef therapy for above. -Clinically improving since pus draining out. Hopefully switch to oral keflex 500mg q6 for 10 days tomorrow if continues to improve.. - patient and updated on plan of care. -f/u in Office on 05/02/16 at 10:30am. Meds Ancef 2g q8- Subjective: Afebrile. less purulent drainage from breast site. LEss erythema. Denies abd pain or diarrhea Objective: Vital Signs Temp Pulse Resp BP Pulse Ox 36.8 C 65 16 173/95 H 93 04/25/16 07:42 04/25/16 07:42 04/25/16 07:42 04/25/16 07:42 04/25/16 07:42 Laboratory Results 04/22/16 04:28 04/22/16 04:28 04/24/16 04/25/16 04/26/16 05:59 05:59 05:59 Intake Total 940 1520 Balance 940 1520 - Physical Exam General Appearance: alert, no apparent distress Extremities: No swelling Skin: erythema (left breast/chest wall: less overall erythema. unable to express out much pus today from site. wick in place. less tender) ICD10 Worksheet Patient Problems: Problems Problem Status Onset Cellulitis of chest wall Acute
--- NOTE | 2016-04-25 09:40 | SOAPPROG ---
Downtime Inpatient MD Late Entry SOAP Note: Due to computer downtime, I am recreating the following medical record entry as of this date and time based on the information specified below: Information on which this medical record entry is based: (Surgery Progress Note 04/24: medimine was down Glory was seen at 0630 yesterday. She was afebrile/her dressing was changed and she has mostly serous drainage from her mastectomy wound The medial upper breast flap developed superficial epidermolysis overnight The superficial layer was debrided with viable underlying dermis Silvasorb and Adaptic guaze was applied and the packing replaced/ I anticipate discharge 04/25 with po Abx and ongoing wound care Shivam Phelps MD, FACS
--- NOTE | 2016-04-25 09:55 | PDDCSUM ---
Discharge Summary Discharge Summary: #[id number] DAMION Phelps MD, FACS
[2016-04-25] MEDS: LISINOPRIL 10 MG TAB PO SCH (10:51)
--- NOTE | 2016-04-25 11:28 | GDS ---
[f rep st] DISCHARGE SUMMARY DISCHARGE DIAGNOSES: 1. Left postmastectomy cellulitis and subcutaneous abscess. 2. Hypertension, new onset. PROCEDURE PERFORMED: On 04/22/2016, drainage of chest wall abscess. HOSPITAL COURSE: For details of admission history and physical, please see dictated summary. Briefly, the patient is a 70-year-old female, who is status post left total mastectomy with sentinel lymph node biopsy for recurrent left breast carcinoma. 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 Her recurrence was a small invasive ductal carcinoma on core biopsy, and mastectomy specimen showed no residual carcinoma, and 2 sentinel nodes were negative. Unfortunately, the patient developed a hematoma approximately 6 days postoperatively, and required reoperation, and was admitted overnight at [facility] for this procedure where the hematoma was drained. She returned home and did well for an additional week when her drain was removed in the office on 04/16/2016. She was admitted on 04/18/2016 with fever and left chest wall cellulitis by Dr. Jesus. Blood cultures were obtained at time of admission. She was started on vancomycin and clinically improved. She had a leukocytosis with mild left shift on admission, but did not appear septic. Cellulitis improved approximately 30% to 40% overnight and then stopped improving, though she did not develop recurrent fevers. I assumed the patient's care at that point, and on the the patient was noted to have some fluctuance in the area of the cellulitis, and then aspiration revealed purulent fluid. This was drained through the center of the mastectomy incision, and a culture was submitted, which showed MSSA. She was switched to intravenous Ancef, was seen by Infectious Diseases, and continued to improve clinically. On the day prior to discharge, she developed some superficial epidermolysis along the medial superior flap. Unclear if this was related to her cellulitis or to her dressing. The superficial skin was debrided, and topical SilvaSorb and Adaptic dressings were placed. The drainage became serous. Her was instructed in wound care, and she was discharged home on 04/25/2016 to continue a course of oral Keflex 500 mg q.6 hours. She will follow up in my office tomorrow for dressing change. During her hospital course, she developed hypertension with diastolic blood pressures in the 90-100 range, and systolic blood pressures in the 160-180 range. She was started on Zestril initially 5 mg a day, and subsequently this was increased to 10 mg a day, at which point her blood pressure remained in borderline control. She had no prior history of hypertension, and will follow up with her primary care physician as an outpatient, and continue to monitor her blood pressure at home. DISCHARGE MEDICATIONS: 1. Percocet one-quarter to one-half q.6 hours p.r.n. pain. 2. Keflex 500 mg p.o. q.i.d. x7 days. 3. Lisinopril 10 mg p.o. daily. 4. P.r.n. Tylenol and ibuprofen. CONDITION ON DISCHARGE: Improved. Followup arranged in my office tomorrow on 04/26/2016. /[id number]/MODL MTDD
[2016-04-25] MEDS ORDERED: CEPHALEXIN 500 MG CAP PO SCH (12:00)
== END 2016-04-25 11:40 | disposition home or self-care (01) | DRG 863 ==
LOC: F2W 20:53 → OBSVTOIN 04-19 17:56
PROVIDERS: ADMIT Surgery; ATTEND Surgery
PROC: 0H9U3ZX Drainage of Left Breast, Percutaneous Approach, Diagnostic (ICD-10-PCS; principal; 2016-04-21)
DX: T81.4XXA Infection following a procedure, initial encounter (principal); N61.1 Abscess of the breast and nipple; B95.61 Methicillin susceptible Staphylococcus aureus infection as the cause of diseases classified elsewhere; I10 Essential (primary) hypertension; M81.0 Age-related osteoporosis without current pathological fracture; Z90.12 Acquired absence of left breast and nipple; Z85.3 Personal history of malignant neoplasm of breast
CPT/HCPCS: 96374; G0378; J0690; J3370

== ENCOUNTER → 2016-05-16 | Outpatient (CLI) | payer OTHER, MEDICARE | LOC: FIMAGING 10:02 | PROVIDERS: ATTEND Surgery | DX: Z13.820 Encounter for screening for osteoporosis (principal); M81.0 Age-related osteoporosis without current pathological fracture; Z78.0 Asymptomatic menopausal state; Z82.62 Family history of osteoporosis; Z85.3 Personal history of malignant neoplasm of breast ==

== ENCOUNTER 2016-08-09 13:32 | Emergency (ER) | payer OTHER, MEDICARE ==
--- NOTE | 2016-08-09 13:40 | EDPHY ---
H & P Source: Patient, EMS Exam Limitations: No limitations - Medical/Surgical History Hx Asthma: No Hx Chronic Respiratory Disease: No Hx Diabetes: No Hx Cardiac Disease: No Hx Renal Disease: No Hx Cirrhosis: No Hx Alcoholism: No Hx HIV/AIDS: No Hx Splenectomy or Spleen Trauma: No Other PMH: Breast CA osteoporosis - Family History Significant Family History: No pertinent family hx - Social History Smoking Status: Never smoked Alcohol Use: Sober Drug Use: None HPI/ROS: CHIEF COMPLAINT: Fall HISTORY OF PRESENT ILLNESS: The patient is a 70-year-old female who comes to the emergency department via EMS after a fall at home. She was lost her balance while getting into her car fell backwards. She caught herself with her right arm and has pain in her right wrist as well as bruising. She also has a small laceration to the back of her head. She denies loss consciousness. She denies headache. She denies nausea vomiting. She denies neck pain or back pain. She does have some slight pain in her tailbone. She is moving all extremities and has been ambulatory. REVIEW OF SYSTEMS: Constitutional: denies: chills, fever, recent illness, recent injury EENTM: denies: blurred vision, double vision, nose congestion Respiratory: denies: cough, shortness of breath Cardiac: denies: chest pain, irregular heart rate, lightheadedness, palpitations Gastrointestinal/Abdominal: denies: abdominal pain, diarrhea, nausea, vomiting, blood streaked stools Genitourinary: denies: dysuria, frequency, hematuria, pain Musculoskeletal: See HPI Skin: See HPI Neurological: See HPI denies: headache, numbness, paresthesia, tingling, dizziness, weakness Hematologic/Lymphatic: denies: blood clots, easy bleeding, easy bruising Immunologic/allergic: denies: HIV/AIDS, transplant EXAM: GENERAL: Well-appearing, well-nourished and in no acute distress. HEAD: Small T-shaped laceration to occiput. Approximately 2 cm length in total. No crepitus or deformity EYES: Pupils equal round and reactive to light, extraocular movements intact, sclera anicteric, conjunctiva are normal. ENT: TMs normal, nares patent, oropharynx clear without exudates. Moist mucous membranes. NECK: Normal range of motion, supple without lymphadenopathy or JVD. No midline point tenderness or step-offs. No cervical collar LUNGS: Breath sounds clear to auscultation bilaterally and equal. No wheezes rales or rhonchi. HEART: Regular rate and rhythm without murmurs, rubs or gallops. ABDOMEN: Soft, nontender, normoactive bowel sounds. No guarding, no rebound. No masses appreciated. BACK: No CVA tenderness, no spinal tenderness, step-offs or deformities EXTREMITIES: Pain to right wrist and bruising. Normal range of motion and pulses distally. Normal sensation. NEUROLOGICAL: Cranial nerves II through XII grossly intact. Normal speech, normal gait. 5/5 strength, normal movement in all extremities, normal sensation PSYCH: Normal mood, normal affect. SKIN: Warm, dry, normal turgor, no visible rashes or lesions. (Chriss Abraham) Constitutional: Initial Vital Signs Temperature (C) 36.6 C 08/09/16 13:45 Heart Rate 72 08/09/16 13:45 Respiratory Rate 18 08/09/16 13:45 Blood Pressure 129/69 H 08/09/16 13:45 O2 Sat (%) 96 08/09/16 13:45 O2 Delivery Mode Room Air Allergies/Adverse Reactions: chlorpheniramine [Chlorpheniramine] Allergy (Intermediate, Verified 03/30/10 12: 29) Rash erythromycin base [Erythromycin Base] Allergy (Intermediate, Verified 03/30/10 12:31) irregular heartbeat meperidine [Meperidine] Allergy (Intermediate, Verified 03/30/10 12:31) Rash morphine [Morphine] Allergy (Intermediate, Verified 03/30/10 12:37) extreme nausea adhesive tape Allergy (Verified 03/14/16 11:47) meperidine HCl [From Demerol] Allergy (Verified 03/14/16 11:47) ether Allergy (Intermediate, Uncoded 03/30/10 12:36) unknown heart reaction as a child Home Medications: Medication Instructions Recorded Acetaminophen [Tylenol ES 500 mg 500 mg PO Q6 PRN 04/18/16 (*)] Ibuprofen [Motrin (*)] 200 mg PO Q4H PRN 04/18/16 Cephalexin [Keflex (*)] 500 mg PO Q6HRS #30 cap 04/25/16 Lisinopril [Zestril 10 mg (*)] 10 mg PO DAILY #30 tab 02/15/17 Medical Decision Making - Diagnostics Imaging: I viewed and interpreted images myself Procedures: Procedure: Laceration repair. I was requested by Dr. Abraham to perform wound closure I explained the indications, risks and benefits for both laceration repair and anesthetic administration. Verbal consent was obtained from the patient . The use 2 cm laceration on the occipital scalp was anesthetized using 0.5% bupivicaine with epinephrine . After anesthetic administered the patient was observed for a period of time and had no apparent adverse effects. The wound was cleaned, prepped, draped in normal sterile fashion and explored to its base. No foreign body seen, no foreign bodies palpated. There were no deep structures involved. No galea defects identified The wound was repaired with 3 akash. The wound repair was simple. The procedure was performed by myself. Patient has been informed that scarring will occur, although efforts have been made to minimize this. (Vernon Denis) Procedure: Splint placement. A sugar-tong splint was applied. After application of the splint I returned and re-examined the patient. The splint was adequately immobilizing the joint and distal to the splint the patient's circulation and sensation was intact. ( Chriss Abraham) ED Course/Re-evaluation: We discussed the x-ray results. The patient continues to feel well and declines head CT. She is requesting ibuprofen for her wrist pain. The patient tolerated repair of her laceration and splinting of her wrist. I will have her follow up with Hand surgery. We discussed indications for returning. (Chriss Abraham) Differential Diagnosis: Partial list of the Differential diagnosis considered include but were not limited to; wrist fracture, scalp laceration, intracranial injury and although unlikely based on the history and physical exam, I also considered syncope, acute coronary disease. I discussed these differential diagnoses and the plan with the patient as well as the usual and expected course. The patient understands that the diagnosis is provisional and that in medicine we are not always correct and that further workup is often warranted. Usual and customary warnings were given. All of the patient's questions were answered. The patient was instructed to return to the emergency department should the symptoms at all worsen or return, otherwise to followup with the physician as we discussed. (Chriss Abraham) - Data Points Medications Given: Discontinued Medications Ibuprofen (Motrin) 600 mg PO EDNOW ONE Stop: 08/09/16 14:10 Last Admin: 08/09/16 14:13 Dose: 600 mg Departure - Departure Disposition: Home, Routine, Self-Care Clinical Impression: Distal radius fracture, right Qualifiers: Encounter type: initial encounter Fracture type: closed Fracture morphology: unspecified fracture morphology Qualified Code(s): S52.501A - Unspecified fracture of the lower end of right radius, initial encounter for closed fracture Scalp laceration Qualifiers: Encounter type: initial encounter Qualified Code(s): S01.01XA - Laceration without foreign body of scalp, initial encounter Condition: Good Instructions: Laceration (ED), Wrist Fracture in Adults (ED) Referrals: Varun Phelps MD [Primary Care Provider] - As per Instructions Sridhar Benitez MD [Medical Doctor] - As per Instructions
[2016-08-09 13:46] VITALS: RESP 18; TEMP 97.9
[2016-08-09] MEDS ORDERED: IBUPROFEN 600 MG TAB PO ONE (14:09)
[2016-08-09 15:11] VITALS: BP 124/64; PULSE 68; O2SAT 97
== END 2016-08-09 15:15 | disposition home or self-care (01) ==
LOC: EDUNIT#
PROC: 0HQ0XZZ Repair Scalp Skin, External Approach (ICD-10-PCS; principal; 2016-08-09)
DX: S52.501A Unspecified fracture of the lower end of right radius, initial encounter for closed fracture (principal); S01.01XA Laceration without foreign body of scalp, initial encounter; Z85.3 Personal history of malignant neoplasm of breast; W18.39XA Other fall on same level, initial encounter; Y92.009 Unspecified place in unspecified non-institutional (private) residence as the place of occurrence of the external cause
CPT/HCPCS: 12001; 73110; 99283; A4565

== ENCOUNTER → 2016-11-16 | Outpatient (CLI) | payer OTHER, MEDICARE | LOC: FIMAGING 14:36 | PROVIDERS: ATTEND Internal Medicine Geriatric Medicine | DX: Z12.31 Encounter for screening mammogram for malignant neoplasm of breast (principal); Z90.12 Acquired absence of left breast and nipple; Z85.3 Personal history of malignant neoplasm of breast | CPT/HCPCS: G0202-52 ==

== ENCOUNTER → 2017-11-18 | Outpatient (CLI) | payer OTHER, MEDICARE | LOC: FIMAGING 11:54 | PROVIDERS: ATTEND Internal Medicine Geriatric Medicine | DX: Z12.31 Encounter for screening mammogram for malignant neoplasm of breast (principal); Z85.3 Personal history of malignant neoplasm of breast; Z90.12 Acquired absence of left breast and nipple ==